=== PATIENT | male | born 1980 | race Hispanic/Latino ===

== ENCOUNTER 2022-03-18 19:43 | Emergency (ER) | payer BC | END 2022-03-18 22:32 | disposition home or self-care (01) | LOC: JD.ED 19:43 | DX: R07.89 Other chest pain (principal); I10 Essential (primary) hypertension; E66.9 Obesity, unspecified; Z68.34 Body mass index [BMI] 34.0-34.9, adult; Z88.6 Allergy status to analgesic agent; Z79.899 Other long term (current) drug therapy; Z86.16 Personal history of COVID-19 | CPT/HCPCS: 36415; 71045; 71045-26; 80053; 84484; 85025; 93005; 99285 ==